=== PATIENT | male | born 1995 | race Caucasian/White ===

== ENCOUNTER → 2017-05-14 | Outpatient (CLI) | payer OTHER ==
[~2017-05-14] MED LIST: ALBU8I INH; PRED20 PO; ZYRT10TA12 PO
--- NOTE | 2017-05-14 09:09 | RADRPT ---
EXAM DATE/TIME: 05/14/2017 08:47 [facility] COMPARISON: No previous studies available for comparison. INDICATIONS : Difficulty passing urine MEDICAL HISTORY : None. SURGICAL HISTORY : None. ENCOUNTER: Initial ACUITY: 1 week PAIN SCORE: 0/10 LOCATION: Abdomen FINDINGS: Supine view of the abdomen was performed. The abdominal bowel gas pattern is normal. No abnormal ma sses, calcifications, or organomegaly is seen. The osseous structures are unremarkable. CONCLUSION: Normal examination. Latrell Hutchison MD on May 14, 2017 at 9:07 Board Certified Radiologist. This report was verified electronically.
== END ==
LOC: HRAD 08:37
PROVIDERS: ATTEND Nurse Practitioner Family
DX: R39.198 Other difficulties with micturition (principal)
CPT/HCPCS: 74018

== ENCOUNTER → 2017-09-16 | Outpatient (CLI) | payer OTHER ==
--- NOTE | 2017-09-16 10:25 | RADRPT ---
EXAM DATE: 09/16/2017 10:13 AM EDT AGE/SEX: 22 years / Male INDICATIONS: Left medial knee swelling. Patient noticed a lump 2 months ago. CLINICAL DATA: This is the patient's initial encounter. Patient reports that signs and symptoms have been present for 2 months and indicates a pain score of 6/10. MEDICAL/SURGICAL HISTORY: None. None. COMPARISON: No prior [facility] exams available for comparison. FINDINGS: Bony structures are intact and in normal alignment. Joints are intact without dislocation or signifi cant arthropathy. Osseous density is normal. Soft tissues are unremarkable. No radiopaque foreign bodies seen. CONCLUSION: Negative examination Electronically signed by: Omero Garcia MD 09/16/2017 10:24 AM EDT
== END ==
LOC: HRAD 09:38
DX: M23.232 Derangement of other medial meniscus due to old tear or injury, left knee (principal)
CPT/HCPCS: 73564